=== PATIENT | male | born 1980 | race Caucasian/White ===

== ENCOUNTER 2020-12-08 13:43 | Emergency (ER) | payer OTHER, SELFPAY ==
[2020-12-08 13:57] VITALS: BP 188/96; PULSE 62; RESP 16; TEMP 36.4; O2SAT 100
--- NOTE | 2020-12-08 14:30 | ED.GENADULT ---
HPI - General Adult General Chief complaint: Dental/Oral Stated complaint: BROKEN TOOTH/JAW SWELLING Time Seen by Provider: 12/08/20 14:30 Source: patient and RN notes reviewed Mode of arrival: ambulatory Limitations: no limitations History of Present Illness HPI narrative: 40-year-old male presents with complaints of left lower dental pain for the past 2 days. ?Aureliano reports a broken LT lower tooth with increasing pain after eating hard crusted pizza. ?Peroxide gargling and Ibuprofen 800mg (last today approximately 12:30) without relief. Denies any drainage. ?No fever. ?No jaw swelling. ?No neck swelling. ?No limitation with speaking or swallowing. ?Has a history of dental caries. ?Has not seen a dentist recently. ?No recent dental trauma. ?No oral lesions. ?Exacerbating factors consist of chewing on the LT side. Relieving factors not eating on LT side and avoiding cold items. ?No dentures or bridges. ?Tolerating liquids well. ?Remains active. ?The patient reports he has not been diagnosed with COVID-19. ?The patient reports he is not waiting for the results of a COVID-19 lab test. ?The patient reports he does not have chills, weakness, or fatigue.? The patient reports he does not have a new or worsening cough or shortness of breath. ?Denies chest pain. The patient reports he does not have any rhinorrhea, congestion, loss of taste or smell, sore throat, nausea, vomiting, abdominal pain, and diarrhea. ?Denies recent traveling. Denies concerns for COVID-19 or exposures.? At this time, the patient is not suspected of having COVID-19. Some parts of this dictation were generated by voice recognition software and may contain typographical and/or grammatical inaccuracies. Related Data Allergies Allergy/AdvReac Type Severity Reaction Status Date / Time latex Allergy Rash Verified 12/08/20 13:57 Review of Systems Review of Systems: Narrative: CONSTITUTIONAL: Denies fever, chills, sweats. EYES: Denies visual changes, redness, discharge. ENT: Denies rhinorrhea, congestion, sore throat, otalgia. Complains of LT lower dental pain. CARDIOVASCULAR: Denies chest pain, palpitations, edema. RESPIRATORY: Denies dyspnea, wheezing, cough. GASTROINTESTINAL: Denies abdominal pain, nausea, vomiting, diarrhea. SKIN: Denies rash or itching. MUSCULOSKELETAL: Denies acute back pain, joint pain, or myalgia. NEUROLOGIC: Denies numbness or focal weakness. PSYCHIATRIC: Denies anxiety or depression. All systems reviewed & are unremarkable except as noted in HPI and below. [facility] Past Medical History Medical History Smoker Surgical History Surgical History (Updated 12/08/20 @ 15:02 by VICTORIA Lee) No significant past surgical history Family History Family History (Updated 12/08/20 @ 15:03 by VICTORIA Lee) Father Unknown family medical history Mother Smoker Social History Social History (Updated 12/09/20 @ 01:06 by VICTORIA Lee) Smoking packs per day: 0.45 Smoking cigarettes per day: 9.0 Years smoked: 20 Smoking pack-years: 9.00 Smoking status: Current every day smoker Tobacco type: cigarettes Second hand tobacco smoke exposure: No Alcohol intake: current Substance use: current Substance use type: marijuana Living arrangements: with family Occupation/Education: occupation Gender identity (if verbalized by the patient): Male Sexual Orientation (if Verbalized by the Patient): Straight or Heterosexual Comments At time of signature, agree with the nurse past medical, surgical, social, and family history. There is no relevant family history pertinent to the presenting complaint. Exam Narrative: Exam Narrative: GENERAL: This is a well-nourished, well-developed patient, in no apparent distress. Talks in full sentences and ambulates with steady gait without dyspnea. HEAD: Normocephalic, atraumatic. EYES: PERRL. Sclera clear/white. Vision is grossly intact. EARS: External ear
== END 2020-12-08 14:50 | disposition home or self-care (01) ==
PROVIDERS: Emergency Provider Nurse Practitioner Family
DX: K02.9 Dental caries, unspecified (principal); S02.5XXA Fracture of tooth (traumatic), initial encounter for closed fracture; X58.XXXA Exposure to other specified factors, initial encounter; F17.210 Nicotine dependence, cigarettes, uncomplicated
CPT/HCPCS: 99213; G0463

== ENCOUNTER 2022-10-21 12:28 | Emergency (ER) | payer OTHER, SELFPAY ==
[2022-10-21 12:35] VITALS: BP 154/105; PULSE 83; RESP 16; TEMP 36.9; O2SAT 100
--- NOTE | 2022-10-21 12:38 | ED.DENTAL ---
HPI - Dental/Oral General Chief complaint: Dental/Oral Stated complaint: DENTAL PAIN/FACIAL SWELLING Time Seen by Provider: 10/21/22 12:38 Source: patient Mode of arrival: ambulatory Limitations: no limitations History of Present Illness HPI Narrative: 42-year-old male presents with complaint of left upper dental pain for the past several days. He currently does not have a dentist. Reports that he has multiple decayed, broken teeth that need to be pulled. No significant swelling noted. Afebrile. Patient reports that he has Medicaid. Was seen at [facility] but it made him on comfortable being there. All systems reviewed and negative except as noted above. Related Data Allergies Allergy/AdvReac Type Severity Reaction Status Date / Time latex Allergy Rash Verified 12/08/20 13:57 Review of Systems Review of Systems: CONSTITUTIONAL: Denies fever, chills, or sweats. EYES: Denies visual changes, redness, or discharge. ENT: Denies rhinorrhea, congestion, sore throat, or otalgia. Reports left upper dental pain with swelling. CARDIOVASCULAR: Denies chest pain, palpitations, or edema. RESPIRATORY: Denies cough or dyspnea. GASTROINTESTINAL: Denies abdominal pain, nausea, vomiting, or diarrhea. GENITOURINARY: Denies dysuria or hematuria. SKIN: Denies rash or itching. MUSCULOSKELETAL: Denies back pain, joint pain, or myalgia. NEUROLOGIC: Denies headache, numbness, or weakness. PSYCHIATRIC: Denies anxiety or depression. All other systems reviewed are negative, except as documented in HPI. [facility] Past Medical History Medical History Smoker Surgical History Surgical History (Updated 12/08/20 @ 15:02 by VICTORIA Lee) No significant past surgical history Family History Family History (Updated 12/08/20 @ 15:03 by VICTORIA Lee) Father Unknown family medical history Mother Smoker Social History Social History (Updated 12/09/20 @ 01:06 by VICTORIA Lee) Smoking packs per day: 0.45 Smoking cigarettes per day: 9.0 Years smoked: 20 Smoking pack-years: 9.00 Smoking status: Current every day smoker Tobacco type: cigarettes Second hand tobacco smoke exposure: No Alcohol intake: current Substance use: current Substance use type: marijuana Living arrangements: with family Occupation/Education: occupation Gender identity (if verbalized by the patient): Male Sexual Orientation (if Verbalized by the Patient): Straight or Heterosexual Comments At time of signature, agree with nursing past medical, surgical, social and family history. There is no relevant family history pertinent to the presenting complaint. Exam Narrative: GENERAL: This is a well-nourished, well-developed patient, in no apparent distress. HEAD: normocephalic, atraumatic. EYES: PERRL. Sclera clear/white. Vision is grossly intact. EARS: External ears normal NOSE: External nose normal MOUTH: PATIENT HAS MULTIPLE DECAYED, BROKEN TEETH. THERE IS MILD SWELLING AND POSSIBLE ABSCESS ABOVE TOOTH 10. AND 11. TENDERNESS ON PALPATION. NECK: Neck supple, non-tender without lymphadenopathy, masses or thyromegaly. CARDIOVASCULAR: Regular rate and rhythm without murmurs, gallops, or rubs. RESPIRATORY: Clear to auscultation. Breath sounds equal bilaterally. No wheezes, rales, or rhonchi. SKIN: warm, Dry, intact with no suspicious lesions or rash, good texture and turgor. NEURO: awake, alert, and oriented to person, place and time. There were no obvious focal neurologic abnormalities. EXTREMITIES: No joint tenderness, effusion, or edema noted. Course Course Level of Care: Express Care Visit Vital Signs Vital signs: Vital Signs Temperature 36.9 C 10/21/22 12:35 Pulse Rate 83 10/21/22 12:35 Respiratory Rate 16 10/21/22 12:35 Blood Pressure 154/105 H 10/21/22 12:35 Pulse Oximetry 100 10/21/22 12:35 Temperature 36.9 C 10/21/22 12:35 Pulse Rate 83
== END 2022-10-21 12:50 | disposition home or self-care (01) ==
PROVIDERS: Emergency Provider Nurse Practitioner Family
DX: K04.7 Periapical abscess without sinus (principal); F17.210 Nicotine dependence, cigarettes, uncomplicated; F12.90 Cannabis use, unspecified, uncomplicated
CPT/HCPCS: 99213; G0463